=== PATIENT | female | born 1985 | race Caucasian/White ===

== ENCOUNTER 2016-12-30 17:53 | Observation (INO) ==
[2016-12-30] MEDS ORDERED: Mag Hydrox/Al Hydrox/Simeth 30 ML UDC PO PRN (18:14)
--- NOTE | 2016-12-30 18:17 | OB/GYN History & Physical ---
Date of Encounter: 12/30/16 Time of Encounter: 18:15 Assessment and Plan (1) 38 weeks gestation of Current visit: Yes Status: Acute 38 weeks 0 days history of proteinuria will check PIH orders denies any symptoms at this time BP is normotensive, will continue to monitor patient requests Tums, Maalox ordered for indigestion (2) PIH ( induced hypertension) Current visit: Yes Status: Acute evaluated 12/25 with elevated protein/creatinine 0.30 repeat protein was elevated will recheck PIH orders and protein/creatinine ratio initial BP elevated 140/90 but then 134/70 on recheck, will continue to monitor denies any symptoms at this time Qualifiers: Trimester: third trimester Qualified Code(s): O13.3 - Gestational [ -induced] hypertension without significant proteinuria, third trimester (3) Placenta previa antepartum Current visit: Yes Status: Acute denies any vaginal bleeding last US performed 10/23/2016 which revealed a placenta 8 mm from the internal cervical os and cord insertion near the cervix 1.8 cm. Qualifiers: Trimester: third trimester Qualified Code(s): O44.03 - Complete placenta previa NOS or without hemorrhage, third trimester History of Present Illness Chief complaint: PIH evaluation HPI: Ms. Menon is a 31 year old female at 38 weeks 0 days presents for PIH evaluation after elevated proteinuria. Patient reports intermittent headaches over the past several days but not at the moment. Denies any blurry vision, visual changes, epigastric or abdominal pain. Reports some nausea but denies vomiting. Denies any contractions, vaginal bleeding or leakage of fluid. Her OB is Dr. Tabor. has been complicated with PIH and placenta previa, last US performed 10/23/2016 which revealed a placenta 8 mm from the internal cervical os and cord insertion near the cervix 1.8 cm. She reports previa resolved based on her last PN visit. Cervix at that time 1 cm dilated. GBS positive, HBV nonreactive, Rubella immune, other serologies reviewed and are otherwise negative. Her blood type is O positive. Past Med Surg Social Fam HX - Past Medical History Medical history: no medical history, non-contributory, other Psychiatric history: no psych history - Past Surgical History Surgical History: no surgical history - Social History Smoking Status: Current every day smoker Smokeless Tobacco Status: No Alcohol use: none Drug use: none - Family History Mother Hx Family Cardiac Disorders: Yes (HTN) Obstetrical History - Pregnancies : 4 Para: 2 Term: 2 : 0 Ab's: 1 Livin Medications and Allergies HYDROcodone/Acet 5/325 mg [[place] 5-325 mg] 1 tab PO Q4H PRN #20 tab 02/29/16 [Rx ] Vit/Iron Fumarate/FA [ Tablet] 1 each PO DAILY #30 tablet 06/17 [Rx] Clotrimazole [Itch Relief] 1 gm TP BID #15 cream..g. 12/29/16 [Rx] Allergies naproxen Adverse Reaction (Verified 06/17/16 08:49) Vomiting Review of System OB All systems PM: reviewed and no additional remarkable complaints except as stated Exam - Constitutional Constitutional: well developed, well nourished, no acute distress, average body habitus - HEENT HEENT: EOMI, Normocephaly, Mucus Membranes Moist - Neck Neck exam: full ROM, normal inspection - Lungs Respiratory exam: CTAB - Cardiovascular Cardiovascular exam: RRR, +S1, +S2 - Abdomen Abdomen: Present: bowel sounds normal, gravid, non tender - Extremities Extremities exam: full ROM, normal capillary refill, pedal edema (mild, symmetrical bilaterally) Deep Tendon Reflex Grade: 2+ Normal - Cervix Dilation: 1 (per last office check by OB) - Uterus Uterus exam: Present: normal size - Comments Comments: reactive FHR baseline 130 with moderate variability and 15x15 accels, category 1 tracing contractions on toco q4 min Results All other labs normal. - VTE Reasons for not Prescribing Prophylaxis: Treatment not Indicated - Low risk for VTE
[2016-12-30 18:52] LABS: Basophils % 0.2 %; Eosinophils # 0.1 K/mcL (0.0-0.6); Eosinophils % 1.4 %; Hematocrit 34.2 % (35.3-44.9); Hemoglobin 11.3 g/dL (11.5-15.4); Immature Granulocytes % 0.8 % (0-4); Immature Platelets 11.2 % (1.1-6.1); Lymphocytes # 1.7 K/mcL (0.6-4.6); Lymphocytes % 16.7 %; Mean Corpuscular Hemoglobin 31.4 pg (28.0-33.3); Mean Platelet Volume 11.4 fL (9.4-12.4); Monocytes # 0.6 K/mcL (0.0-1.3); Monocytes % 5.9 %; Neutrophils # 7.6 K/mcL (1.6-8.9); Platelet Count 163 K/mcL (140-400); Red Cell Distribution Width 13.6 % (11.5-14.5)
[2016-12-30 19:07] LABS: Alanine Aminotransferase 10 Units/L (0-55); Aspartate Amino Transferase 15 Units/L (5-34); BUN/Creatinine Ratio 8 (6-26); Lactate Dehydrogenase 138 Units/L (159-327); Uric Acid 4.3 mg/dL (2.6-6.0); eGFR For African Americans > 60 (> 60); eGFR For Non-African Americans > 60 (> 60)
[2016-12-30 19:08] LABS: Blood Urea Nitrogen 5 mg/dL (7-20)
[2016-12-30 19:48] LABS: Protein/Creatinine Ratio,Urine 0.2 mg/mg (0-0.20)
--- NOTE | 2016-12-30 20:08 | Discharge Summary ---
Date of Encounter: 12/30/16 Time of Encounter: 20:08 - Discharge Diagnosis (1) 38 weeks gestation of Priority: Primary Status: Acute Comments: 2 separate BPs with >SBP 140 or DBP >90 last BP 128/82 however remains asymptomatic normal protein:creatinine ratio <0.20 FHR reactive, category 1 tracing, baseline 135 with moderate variability and 15x15 accels toco contractions q3-4 min but patient denies feeling stable for discharge home but with scheduled induction of labor for gestational hypertension, scheduled IOL 01/01 at 0800 (2) PIH ( induced hypertension) Priority: Secondary Status: Acute Comments: protein creatinine ratio is 0.2 last BP 128/82 patient stable for discharge home strict return precautions given, patient agrees to return for severe headache, visual changes, abdominal pain, shortness of breath, as well as labor symptoms Qualifiers: Trimester: third trimester Qualified Code(s): O13.3 - Gestational [ -induced] hypertension without significant proteinuria, third trimester (3) Placenta previa antepartum Priority: Secondary Status: Resolved Comments: upon medical record review, US 12/02/16 reveals fetus in VTX position with resolved previa with posterior olacental edge 3.2 cm from internal os Qualifiers: Trimester: third trimester Qualified Code(s): O44.03 - Complete placenta previa NOS or without hemorrhage, third trimester - Discharge Medications Home Medications: HYDROcodone/Acet 5/325 mg [[place] 5-325 mg] 1 tab PO Q4H PRN #20 tab 02/29/16 [Rx ] Vit/Iron Fumarate/FA [ Tablet] 1 each PO DAILY #30 tablet 06/17 [Rx] Clotrimazole [Itch Relief] 1 gm TP BID #15 cream..g. 12/29/16 [Rx] Allergies/Adverse Reactions: Allergies naproxen Adverse Reaction (Verified 06/17/16 08:49) Vomiting Data Procedures and tests throughout hospitalization: Laboratory Tests 12/30/16 12/30/16 12/30/16 18:36 18:36 18:36 WBC 10.1 RBC 3.60 L Hgb 11.3 L Hct 34.2 L MCV 95.0 MCH 31.4 MCHC 33.0 RDW 13.6 Plt Count 163 MPV 11.4 Immature Gran % 0.8 Seg Neutrophils % 75.0 Lymphocytes % 16.7 Monocytes % 5.9 Eosinophils % 1.4 Basophils % 0.2 Neutrophils # 7.6 Lymphocytes # 1.7 Monocytes # 0.6 Eosinophils # 0.1 Basophils # 0.0 Immature Plt Fraction 11.2 H BUN 5 L Creatinine 0.62 Est GFR ( Amer) > 60 Est GFR (Non-Af Amer) > 60 BUN/Creatinine Ratio 8 Uric Acid 4.3 AST 15 ALT 10 Lactate Dehydrogenase 138 L Urine Creatinine 98 Protein/Creatinin Ratio 0.20 Urine Total Protein 20 H Labs on day of discharge: Labs from last 24 hours 12/30/16 12/30/16 12/30/16 18:36 18:36 18:36 WBC 10.1 RBC 3.60 L Hgb 11.3 L Hct 34.2 L MCV 95.0 MCH 31.4 MCHC 33.0 RDW 13.6 Plt Count 163 MPV 11.4 Immature Gran % 0.8 Seg Neutrophils % 75.0 Lymphocytes % 16.7 Monocytes % 5.9 Eosinophils % 1.4 Basophils % 0.2 Neutrophils # 7.6 Lymphocytes # 1.7 Monocytes # 0.6 Eosinophils # 0.1 Basophils # 0.0 Immature Plt Fraction 11.2 H BUN 5 L Creatinine 0.62 Est GFR ( Amer) > 60 Est GFR (Non-Af Amer) > 60 BUN/Creatinine Ratio 8 Uric Acid 4.3 AST 15 ALT 10 Lactate Dehydrogenase 138 L Urine Creatinine 98 Protein/Creatinin Ratio 0.20 Urine Total Protein 20 H Date of admission: 12/30/16 17:53 Discharging clinician: César Jacobson Anticipated date of discharge: 12/30/16 - Patient Status Disposition: Home, Self-Care Condition: Good Functional capacity at discharge: independent ambulation Overall status at discharge: patient is back to baseline - Discharge Instructions - Diet and Activity Activity: increase activity as tolerated, resume usual activities as tolerated Diet: advance to your usual diet, regular diet Hospital Course [facility] Discharge diagnosis: other (gestational hypertension) Time Attestation: Total time spent providing and/or coordinating discharge services: Time Spent: Less than 30 minutes Exam - Constitutional General appearance IM: A&O X 3, no acute distress, answers questions appropriately - Respiratory Respiratory exam: Present: CTAB - Cardiovascular Cardiovascular exam IM: Present: RRR, +S1, +S2 - GI/Abdominal GI/Abdominal exam IM: normal bowel sounds - Rectal Rectal exam: deferred - External exam: normal external exam - Extremities Exam Extremities exam IM: Present: full ROM, normal capillary refill, pedal edema ( mild) - Neurological Exam Neurological exam: alert, normal gait, oriented X3, no focal deficits, strengths equal and symetr throughout - Psychiatric Additional comments: normal mood and affect - Other Additional findings: FHR reactive, category 1 tracing, baseline 135 with moderate variability and 15x15 accels toco contractions q3-4 min but patient denies feeling - VTE Reasons for not Prescribing Prophylaxis: Treatment not Indicated - Low risk for VTE
== END 2016-12-30 20:45 | disposition home or self-care (01) ==
LOC: 1NENULAB
PROVIDERS: ADMIT Student in an Organized Health Care Education/Training Program; ATTEND Student in an Organized Health Care Education/Training Program

== ENCOUNTER 2017-01-01 06:25 | Inpatient (IN) ==
[2017-01-01] MEDS ORDERED: Famotidine 20 MG/2 ML VIAL IVP PRN (06:28)
[2017-01-01] MEDS ORDERED: Naloxone 0.4 MG/ML INJ IVP PRN (06:28)
[2017-01-01] MEDS ORDERED: miSOPROStol 25 MCG TABLET PO PRN (06:28)
[2017-01-01] MEDS ORDERED: Metoclopramide 10 MG/2 ML VIAL IVP PRN (06:28)
[2017-01-01 07:10] LABS: Alanine Aminotransferase 14 Units/L (0-55); Aspartate Amino Transferase 14 Units/L (5-34); BUN/Creatinine Ratio 8 (6-26); Uric Acid 4.1 mg/dL (2.6-6.0); eGFR For African Americans > 60 (> 60); eGFR For Non-African Americans > 60 (> 60)
[2017-01-01 07:14] LABS: Basophils % 0.3 %; Eosinophils # 0.1 K/mcL (0.0-0.6); Eosinophils % 1.4 %; Hematocrit 34.7 % (35.3-44.9); Hemoglobin 11.4 g/dL (11.5-15.4); Immature Granulocytes % 1.5 % (0-4); Lymphocytes % 19.3 %; Mean Corpuscular HGB Conc 32.9 g/dL (31.6-35.5); Mean Corpuscular Hemoglobin 31.1 pg (28.0-33.3); Mean Corpuscular Volume 94.6 fL (83.0-100.0); Mean Platelet Volume 11.5 fL (9.4-12.4); Monocytes # 0.6 K/mcL (0.0-1.3); Monocytes % 6.2 %; Neutrophils # 7.2 K/mcL (1.6-8.9); Platelet Count 154 K/mcL (140-400); Red Blood Count 3.67 M/mcL (3.82-4.97); Red Cell Distribution Width 13.6 % (11.5-14.5); Segmented Neutrophils % 71.3 %
[2017-01-01 07:15] LABS: Blood Urea Nitrogen 5 mg/dL (7-20)
[2017-01-01] MEDS ORDERED: Penicillin G Potassium 5,000,000 UNIT in D5% in Water (Mini-Bag+) 100 ML IVPB ONE (07:31)
[2017-01-01] MEDS ORDERED: miSOPROStol 25 MCG TABLET ONE (07:32)
[2017-01-01] MEDS ORDERED: D5% in Water (Mini-Bag+) 100 ML IVPB ONE (07:34)
[2017-01-01 07:38] LABS: Lactate Dehydrogenase 136 Units/L (159-327)
[2017-01-01] MEDS: Ringers Solution, Lactated 1,000 ML IVC SCH ×2 (07:46→20:27)
--- NOTE | 2017-01-01 10:25 | OB/GYN History & Physical ---
Date of Encounter: 01/01/17 Time of Encounter: 10:22 Assessment and Plan (1) Gestational hypertension affecting fourth Current visit: Yes Status: Acute Induction of labor with Cytotec (initial dose 50 by mouth) Castro balloon just placed without complications PIH labs drawn and all negative Epidural and Nubain if desired Regular diet Encourage ambulation peanut ball and use of birthing ball Anticipate (2) 38 weeks gestation of Current visit: No Status: Acute History of Present Illness Chief complaint: Here for induction of labor for gestational hypertension HPI: Ms. Menon is a 31 year old female presents for induction of labor for gestational hypertension. Patient states was uncomplicated with the exception of early placenta previa (resolved) and new onset of gestational hypertension requiring induction. Patient reports good movement, denies vaginal bleeding or leaking of fluid or contractions prior to admission. Patient also denies headache visual changes or epigastric pain. Labs O+, GBS positive, , rubella immune, all other serologies negative Past Med Surg Social Fam HX - Past Medical History Source: patient Medical history: no medical history Psychiatric history: no psych history - Past Surgical History Surgical History: no surgical history - Social History Smoking Status: Current every day smoker Packs per day: 1/2 Smokeless Tobacco Status: No Alcohol use: none Drug use: none - Family History Mother Age: 61 Living Status: Still Living Hx Family Cardiac Disorders: Yes (htn) Hx Family Respiratory Disorders: No Hx Family Cancer: No Hx Family GI Disorders: No Hx Family Genitourinary Disorders: No Hx Family Endocrine Disorder: No Hx Family Musculoskeletal Disorders: No Hx Family Neuromuscular Disorders: No Hx Family Neurologic Disorders: No Hx Family HEENT Disorders: No Hx Family Autoimmune Disorders: No Hx Family Reproductive Disorders: No Hx Family Psychosocial Disorders: No Hx Family Medical Disorders: No Obstetrical History - Pregnancies : 4 Para: 2 Term: 2 : 0 Ab's: 1 Livin Medications and Allergies Ferrous Sulfate 325 mg PO DAILY 01/01/17 [History] Zantac 75 PO DAILY 01/01/17 [History] Allergies naproxen Adverse Reaction (Verified 06/17/16 08:49) Vomiting Review of System OB All systems PM: reviewed and no additional remarkable complaints except as stated Exam - Vital Signs Vital signs: Initial Vital Signs Temp Pulse Resp BP 98.1 F 80 16 131/90 01/01/17 06:36 05/04/17 06:36 01/01/17 06:36 01/01/17 06:36 - Constitutional Constitutional: well developed, well nourished, no acute distress - Neck Neck exam: full ROM - Lungs Respiratory exam: CTAB - Cardiovascular Cardiovascular exam: RRR, +S1, +S2 - Breasts Breast: bilateral: normal - Abdomen Abdomen: Present: bowel sounds normal, gravid - Extremities Extremities exam: normal capillary refill, normal inspection - Vulva Vulva: bilateral: normal - Vagina Vagina: Present: normal moisture - Cervix Dilation: 1 Effacement: 30 Station: -3 - Uterus Uterus exam: Present: normal size (EFW 7#), normal contour - Anus/Rectum Anus/Rectum: Present: normal perianal skin Results Result Diagrams: 01/01/17 06:45 01/01/17 06:45 Abnormal lab results RBC 3.67 M/mcL (3.82-4.97) L 01/01/17 06:45 Hgb 11.4 g/dL (11.5-15.4) L 01/01/17 06:45 Hct 34.7 % (35.3-44.9) L 01/01/17 06:45 BUN 5 mg/dL (7-20) L 01/01/17 06:45 Lactate Dehydrogenase 136 Units/L (159-327) L 01/01/17 06:45 All other labs normal. - VTE Reasons for not Prescribing Prophylaxis: Treatment not Indicated - Low risk for VTE
[2017-01-01] MEDS: Penicillin G Potassium 2,500,000 UNIT in D5% in Water 100 ML IVPB SCH ×3 (12:18→20:26)
[2017-01-01] MEDS ORDERED: *HR* Nalbuphine 20 MG/ML AMPUL ONE (13:16)
[2017-01-01] MEDS ORDERED: Ondansetron 4 MG/2 ML VIAL ONE (13:34)
[2017-01-01] MEDS ORDERED: Oxytocin 20 units/ LR 1000 mL 20 UNIT/1,000 ML BAG IVC SCH (14:15)
[2017-01-01] MEDS: Ondansetron 4 MG/2 ML VIAL IVP PRN ×2 (14:22→19:15)
--- NOTE | 2017-01-01 15:59 | OB Labor Progress Note ---
Date of Encounter: 01/01/17 Time of Encounter: 15:58 Labor Progress Note - Subjective Subjective: Resting in bed at this time after a dose of Nubain - Heart Tones Heart Tones: 115/moderate/accels/no decels Cat I - [place]: 2-4 minutes - Plan Plan: Castro remains in place, patient remains on Pitocin per policy increasing as tolerated Continue current management Epidural as desired We will plan for AROM once Castro out Anticipate
--- NOTE | 2017-01-01 17:29 | OB/GYN Progress Note ---
Date of Encounter: 01/01/17 Time of Encounter: 17:27 Subjective - Subjective Antepartum ROS: contractions Objective - Vital Signs Vital Signs: Vital Signs Temp Pulse Resp BP 01/01/17 06:36 98.1 F 80 16 131/90 Intake and Output 01/01/17 01/01/17 01/01/17 07:59 15:59 23:59 Intake Total 100 / 100 Balance 100 / 100 Intake: IV Fluids 100 / 100 Pfizerpen 2,500,000 UNIT 100 / 100 In Dextrose 5% 100 ML @ 200 mls/hr IVPB Q4HR [facility] Rx#:[id number] Other: Weight 99 kg Patient Weight 01/01/17 23:59 Weight 99 kg - Exam FHR: category 1 Cervical dilation: 3 Cervix effacement: 40 station: -1 - Labs Labs: Abnormal lab results RBC 3.67 M/mcL (3.82-4.97) L 01/01/17 06:45 Hgb 11.4 g/dL (11.5-15.4) L 01/01/17 06:45 Hct 34.7 % (35.3-44.9) L 01/01/17 06:45 BUN 5 mg/dL (7-20) L 01/01/17 06:45 Lactate Dehydrogenase 136 Units/L (159-327) L 01/01/17 06:45
[2017-01-01] MEDS ORDERED: miSOPROStol 25 MCG TABLET VG SCH (18:07)
[2017-01-01] MEDS ORDERED: Famotidine 20 MG/2 ML VIAL IVP ONE (19:44)
--- NOTE | 2017-01-01 20:30 | OB Labor Progress Note ---
Date of Encounter: 01/01/17 Time of Encounter: 17:15 Labor Progress Note - Cervix Cervix: 3 - Plan Plan: ervix remains unfavorable and with high presentation decision to AROM not appropriate at this time. Will change to cytotec 25mcg vaginally for further cervical ripining. POC discussed with patient and . Pt may have epidural when desires pt may eat dinner if desired. Anticipate
--- NOTE | 2017-01-01 22:19 | OB/GYN Procedure Note ---
Delivery - Delivery Date: 01/01/17 Provider: Malick Tabor ([facility]) Intrapartum events: none Delivery induction: AROM, misoprostol Delivery augmentation: pitocin Delivery monitor: external FHT, external uterine, internal FHT, internal uterine Anesthesia: epidural Estimated Blood Loss: 250 - Infant (s) Infant A Delivery Date: 01/01/17 Delivery Time: 21:19 Presentation: vertex Position: OA Route of delivery: Gender: Male Pounds: 9 Ounces: 11 Weight Gram: 4410 kg at 1 minute: 8 at 5 mins: 9 Shoulder Dystocia: not encountered Placenta: spontaneous Cord: nuchal cord - Repair Episiotomy: none Laceration Description: Perineal - 2nd Degree - Complications Delivery complications: none Delivery comments: Patient with complaints of pressure, vaginal exam complete/ +2, patient began directed bearing down efforts to spontaneous vaginal delivery of liveborn male vertex delivered OA with restitution to AR and nuchal cord identified and manually reduced, then shoulders and body easily followed. Vigorous male placed on maternal abdomen, Apgars 8/9. Second-degree perineal laceration repaired with 2-0 Vicryl. Placenta delivered spontaneously (kayode), EBL 250. Sponge and needle count correct. Dr. Tabor present for entire procedure - Disposition Mom disposition: stable in LDR disposition: stable in LDR
--- NOTE | 2017-01-01 22:55 | OB Labor Progress Note ---
Date of Encounter: 01/01/17 Time of Encounter: 22:52 Labor Progress Note - Subjective Subjective: Pt states feels some contractions, but pain is manageable at this time. - Cervix Cervix: 3/50/-3 - Heart Tones Heart Tones: 125/moderate/accels/no decels Cat1 - Interventions Interventions: vaginal exam - Plan Plan: Discussed with Dr chávez and patinent. REstart pitocin per policy epidural placement, Anticipate
[2017-01-01] MEDS ORDERED: EPHEDrine 50 MG/ML VIAL IVP PRN (23:14)
[2017-01-01] MEDS ORDERED: Ringers Solution, Lactated 500 ML IVC ONE (23:14)
[2017-01-01] MEDS ORDERED: Epidural Premix (fent/bupiv) 110 ML EP SCH (23:15)
[2017-01-01] MEDS ORDERED: Epidural Premix (fent/bupiv) 110 ML EP ONE (23:16)
--- NOTE | 2017-01-01 23:56 | Anesthesia Evaluation PreOp ---
Date of Encounter: 01/01/17 Time of Encounter: 23:54 - Past History Planned Operation: ROGER Cardiac History: Denies any Significant Hx Pulmonary History: Smoker IT DATA ARCHITECT History: Denies Any Significant HX Other Medical History: Denies Any Significant HX Anesthesia History: No Prior Anesthetic Complications : Yes (38.2) Alcohol Use: none Drug use: none Medications and Allergies Ferrous Sulfate 325 mg PO DAILY 01/01/17 [History] Zantac 75 PO DAILY 01/01/17 [History] Allergies naproxen Adverse Reaction (Verified 06/17/16 08:49) Vomiting - Meds/Allergy Pre-op Review Medications Reviewed: Yes Allergies Reviewed: Yes Beta Blockers on Current Med List: No Anesthesia Results - Labs 01/01/17 06:45 01/01/17 06:45 Anesthesia Exam Height: 5'7" Weight: 99kg NPO (# of Hours): 8 Pain Scale: 7 Pain Scale Used: Numeric (1 - 10) - HEENT Pupil (Motor): Pupils equal Mallampati: II Teeth: Normal Oral Opening: Greater than 3 - IT DATA ARCHITECT LOC: Oriented IT DATA ARCHITECT Motor: Normal RUE, Normal LUE, Normal RLE, Normal LLE, Normal Face IT DATA ARCHITECT Sensory: Normal: RUE, LUE, RLE, LLE, Face - Cardiac Rhythm: Regular Murmur: None JVD: No Carotid Bruit: No - Pulmonary Breath Sounds: bilateral Clear Respiratory Effort: Symmetrical Anesthesia Assess/Plan ASA Score: 2 Modified Bristol Scale for Level of Consciousness: Cooperative, oriented, and tranquil Anesthetic Plan: General (plan b), Regional (plan a) Autologous Blood: Yes Monitoring Plan: Standard Monitors
--- NOTE | 2017-01-02 | Anesthesia Procedures ---
Date of Encounter: 01/01/17 Time of Encounter: 23:57 Procedures: Anesthesia - Epidural/Spinal Patient ID/Chart reviewed: Yes Patient examined: Yes OB Eval: Gestational age: 38.2 OB Eval: : 4 OB Eval: Hx Para: 2 OB Eval: Dilated at (cm): 3 OB Eval: Contractions: Non-stressed pattern Consent Obtained: Yes Supplemental Oxygen: None/Room Air Site Prep: Aseptic Technique, Sterile prep and drape, Povidone-Iodine 1% Patient position: upright Local Anesthetic: Lidocaine 1% Amount of Local Anesthetic used: 3 Touhy Needle Gauge: 18 Touhy Needle Depth (cm): 8 Catheter Depth at Skin (cm): 16 Test Dose (1.5% Lido + Epi): Volume given (mls): 5 Test Dose Result: Negative Loading Dose: Other: 8mls of epidural pharm bag premix solution Loading Dose Administered: Thru Catheter Infusion Med: 0.125% Bupivacaine w/ 2 mcg/ml Fentanyl Infusion Rate (mls/hr): 15 ([id number]) Catheter Secured in Place: Tegaderm, Tape Interspace Used: L3-L4 Loss of Resistance (TANYA): Yes Blood: No CSF: No Paresthesia: No Procedure: pt tolerated procedure well. no complications. vss. fhr stable. 128/76 hr 82 126/74 hr 76 fhr 128, 120
[2017-01-02] MEDS: Penicillin G Potassium 2,500,000 UNIT in D5% in Water 100 ML IVPB SCH ×2 (00:38→04:24)
--- NOTE | 2017-01-02 01:14 | OB Labor Progress Note ---
Date of Encounter: 01/02/17 Time of Encounter: 01:12 Labor Progress Note - Subjective Subjective: patient resting comfortable in bed with epidural - Cervix Cervix: 5cm per Dr. Tabor - Heart Tones Heart Tones: 120/moderate/accel - Interventions Interventions: AROM and IUPC by Dr. Tabor. Blood tinged fluid noted. - Plan Plan: Continue pitocin per policy Frequent repositioning Anticipate
[2017-01-02] MEDS ORDERED: Oxytocin 20 units/ LR 1000 mL 20 UNIT/1,000 ML BAG IVC SCH ×2 (02:43→11:54)
[2017-01-02] MEDS: Ringers Solution, Lactated 1,000 ML IVC SCH (05:12)
[2017-01-02] MEDS ORDERED: Epidural Premix (fent/bupiv) 110 ML EP ONE (05:44)
--- NOTE | 2017-01-02 07:02 | OB Labor Progress Note ---
Date of Encounter: 01/02/17 Time of Encounter: 06:58 Labor Progress Note - Subjective Subjective: Patient states was able to sleep. Is now feeling a little bit of pain and cramping on left side. Using epidural PCEA - Cervix Cervix: 7/80/-1 - Heart Tones Heart Tones: 120/minimal/accels/variables/ - [place]: 1.5-3 IUPC - Interventions Interventions: VE/FSE placed Dr. Tabor updated - Plan Plan: Continue pitocin per policy Frequent repositioning Anticpate
--- NOTE | 2017-01-02 07:44 | OB/GYN Procedure Note ---
Delivery - Delivery Date: 01/01/17 Provider: Malick Tabor ([facility]) Intrapartum events: none Delivery induction: estrada, misoprostol Delivery augmentation: rupture of membranes, pitocin Delivery monitor: external FHT, external uterine, internal FHT, internal uterine Anesthesia: epidural Estimated Blood Loss: 1,000 - Infant (s) A Delivery Date: 01/02/17 Delivery Time: 07:24 Presentation: vertex Position: OA Route of delivery: Gender: Female Viability: Viable Pounds: 7 Ounces: 14 Weight Gram: 3585 kg at 1 minute: 8 at 5 mins: 9 Shoulder Dystocia: not encountered Specimens collected: cord blood Placenta: spontaneous - Repair Episiotomy: none Laceration Description: None - Complications Delivery complications: none Delivery comments: Pt with variable celebrations vaginal exam shows complete +2. Active maternal bearing down efforts to spontaneous vaginal delivery of liveborn girl. Vertex presented OA restitution to AR shoulders and body easily followed. No nuchal cord or shoulder dystocia encountered. Vigorous female placed on maternal abdomen Apgars 8/9. Delayed cord clamping. Bleeding encountered prior to placental delivery Pitocin started prior to placental delivery. Placenta delivered spontaneously (Lynn) then firm with fundal massage and no further bleeding noted at this time. EBL 1000. Perineum intact sponge and needle counts correct the placenta to pathology. Dr. Tabor present for entire procedure - Disposition Mom disposition: stable in LDR disposition: stable in LDR
[2017-01-02] MEDS: Ondansetron 4 MG/2 ML VIAL IVP PRN (08:57)
[2017-01-02] MEDS ORDERED: Benzocaine/Menthol 56 GM AEROSOL SPRAY TP PRN (11:54)
[2017-01-02] MEDS ORDERED: Acetaminophen 325 MG TABLET PO PRN (11:54)
[2017-01-02] MEDS ORDERED: Lanolin 28 GM TUBE TP PRN (11:54)
[2017-01-02] MEDS: Ibuprofen 600 MG TABLET PO PRN ×2 (12:08→18:10)
[2017-01-03 05:30] LABS: Basophils % 0.3 %; Eosinophils # 0.2 K/mcL (0.0-0.6); Eosinophils % 1.6 %; Hematocrit 25.3 % (35.3-44.9); Immature Granulocytes % 0.8 % (0-4); Lymphocytes # 2.2 K/mcL (0.6-4.6); Mean Corpuscular Hemoglobin 31.3 pg (28.0-33.3); Mean Corpuscular Volume 97.7 fL (83.0-100.0); Mean Platelet Volume 11.7 fL (9.4-12.4); Monocytes # 0.7 K/mcL (0.0-1.3); Neutrophils # 7.8 K/mcL (1.6-8.9); Platelet Count 136 K/mcL (140-400); Red Blood Count 2.59 M/mcL (3.82-4.97); Red Cell Distribution Width 13.9 % (11.5-14.5); Segmented Neutrophils % 71.3 %
[2017-01-03 05:45] LABS: Hemoglobin 8.1 g/dL (11.5-15.4)
--- NOTE | 2017-01-03 09:09 | OB/GYN Progress Note ---
Date of Encounter: 01/03/17 Time of Encounter: 09:10 - Assessment and Plan (1) Status post vaginal delivery Current Visit: Yes Status: Acute Discharged home tomorrow if stable and afebrile Subjective - Subjective Interval history: Patient is doing well this morning not having any lightheadedness or dizziness. She was wanting a tubal ligation however with the acute blood loss with her delivery anesthesia is not comfortable doing the surgery and has asked me to cancel it. Did advise the patient we will schedule that for 6 weeks . Baby is in the nursery on some oxygen so she will be discharged tomorrow if stable. Patient reports: appetite normal, voiding normally, pain well controlled, ambulating normally [place]: in NICU Objective - Latest Vital Signs Latest vital signs: Vital Signs Temp Pulse Pulse Resp BP Pulse Ox 01/03/17 07:30 97.6 F 74 16 105/64 01/03/17 03:22 97.6 F 84 14 121/81 98 01/02/17 21:27 97.7 F 90 14 119/75 98 01/02/17 15:45 98.2 F 76 16 122/76 97 01/02/17 12:15 97.8 F 73 73 14 122/78 99 01/02/17 11:15 98.2 F 69 14 125/88 99 01/02/17 10:15 97.8 F 85 16 124/86 97 Intake and Output 01/02/17 01/03/17 01/03/17 23:59 07:59 15:59 Output Total 600 / 600 600 / 600 Balance -600 / -600 -600 / -600 Output: Urine 600 / 600 600 / 600 Other: Stool Characteristics Normal for Patient Weight 95.2 kg Patient Weight 01/03/17 23:59 Weight 95.2 kg - Exam Lungs: bilateral: normal Chest: Normal S1, Normal S2 Extremities: Present: tenderness Abdomen: Present: normal appearance, soft Uterus: Present: firm Uterus Position: At Umbilicus - Labs Labs: Laboratory Results - last 24 hr 01/03/17 04:55 WBC 10.9 RBC 2.59 L Hgb 8.1 L D Hct 25.3 L MCV 97.7 MCH 31.3 MCHC 32.0 RDW 13.9 Plt Count 136 L MPV 11.7 Immature Gran % 0.8 Seg Neutrophils % 71.3 Lymphocytes % 20.0 Monocytes % 6.0 Eosinophils % 1.6 Basophils % 0.3 Neutrophils # 7.8 Lymphocytes # 2.2 Monocytes # 0.7 Eosinophils # 0.2 Basophils # 0.0
[2017-01-03] MEDS: Prenatal Vit/FA 1 EACH TABLET PO SCH (10:28)
[2017-01-03] MEDS: Ibuprofen 600 MG TABLET PO PRN (22:41)
[2017-01-04] MEDS: Prenatal Vit/FA 1 EACH TABLET PO SCH (07:59)
[2017-01-04] MEDS: Ibuprofen 600 MG TABLET PO PRN (08:00)
[2017-01-04 08:19] VITALS: BP 129/89
--- NOTE | 2017-01-04 10:02 | Discharge Summary ---
Date of Encounter: 01/04/17 Time of Encounter: 10:01 - Discharge Diagnosis (1) Status post vaginal delivery Priority: Primary Status: Acute Comments: Doing well, will d/c home. - Discharge Medications Prescriptions: Ibuprofen [Motrin] 600 mg PO Q6HR PRN #40 tablet PRN Reason: Cramping Hydrochlorothiazide 25 mg PO DAILY PRN #7 tablet PRN Reason: swelling Home Medications: Ferrous Sulfate 325 mg PO DAILY 01/01/17 [History] Zantac 75 PO DAILY 01/01/17 [History] Hydrochlorothiazide 25 mg PO DAILY PRN #7 tablet 01/04/17 [Rx] Ibuprofen [Motrin] 600 mg PO Q6HR PRN #40 tablet 01/04/17 [Rx] Allergies/Adverse Reactions: Allergies naproxen Adverse Reaction (Verified 06/17/16 08:49) Vomiting Data Procedures and tests throughout hospitalization: Laboratory Tests 01/01/17 01/01/17 01/03/17 06:45 06:45 04:55 WBC 10.1 10.9 RBC 3.67 L 2.59 L Hgb 11.4 L 8.1 L D Hct 34.7 L 25.3 L MCV 94.6 97.7 MCH 31.1 31.3 MCHC 32.9 32.0 RDW 13.6 13.9 Plt Count 154 136 L MPV 11.5 11.7 Immature Gran % 1.5 0.8 Seg Neutrophils % 71.3 71.3 Lymphocytes % 19.3 20.0 Monocytes % 6.2 6.0 Eosinophils % 1.4 1.6 Basophils % 0.3 0.3 Neutrophils # 7.2 7.8 Lymphocytes # 2.0 2.2 Monocytes # 0.6 0.7 Eosinophils # 0.1 0.2 Basophils # 0.0 0.0 BUN 5 L Creatinine 0.60 Est GFR ( Amer) > 60 Est GFR (Non-Af Amer) > 60 BUN/Creatinine Ratio 8 Uric Acid 4.1 AST 14 ALT 14 Lactate Dehydrogenase 136 L - Impressions Doing well, c/o discomfort with pedal edema. Date of admission: 01/01/17 06:25 Primary care physician: Sam Mitchell DO Consults: 01/02/17 11:54 Consult to Continuous Vulcanizing Machine Operator [CONS] Routine Comment: Vaginal delivery, consult needed - Patient Status Disposition: Home, Self-Care Condition: Good Functional capacity at discharge: independent ambulation Overall status at discharge: patient is back to baseline - Discharge Instructions Follow Up With: Priti Cameron CNM [Advanced Practice Nurse] - (January 30, 2017 @ 2:45 am) - Diet and Activity Activity: increase activity as tolerated Hospital Course SOFTWARE DESIGN ANALYST Time Attestation: Total time spent providing and/or coordinating discharge services: Exam - Constitutional Vitals: Temp Pulse Resp BP Pulse Ox 97.6 F 64 16 129/89 99 01/04/17 08:18 01/04/17 08:18 01/04/17 08:24 01/04/17 08:18 01/03/17 22:40 General appearance IM: A&O X 3 - Respiratory Respiratory exam: Present: CTAB - Cardiovascular Cardiovascular exam IM: Present: RRR - GI/Abdominal GI/Abdominal exam IM: normal bowel sounds - VTE Reasons for not Prescribing Prophylaxis: Treatment not Indicated - Low risk for VTE
== END 2017-01-04 10:40 | disposition home or self-care (01) | DRG 560 ==
LOC: 1NENULAB 06:25 → 1NENUOBS 01-02 10:40
PROVIDERS: ADMIT Obstetrics & Gynecology; ATTEND Obstetrics & Gynecology